=== PATIENT | female | born 1950 | race Caucasian/White ===

== ENCOUNTER 2017-07-16 19:59 | Emergency (ER) | payer OTHER ==
[~2017-07-16] VITALS: Ht 175.3 cm; Wt 183.6 kg
[2017-07-16 21:42] VITALS: BP 121/65
== END 2017-07-16 21:43 | disposition home or self-care (01) ==
LOC: EME 19:59
DX: M79.662 Pain in left lower leg (principal); I10 Essential (primary) hypertension; E78.5 Hyperlipidemia, unspecified; F41.0 Panic disorder [episodic paroxysmal anxiety]
CPT/HCPCS: 73590; 99281; 99283